=== PATIENT | female | born 1985 | race Two or more races ===

== ENCOUNTER 2019-03-28 11:45 | Inpatient (IN) | payer BC ==
[2019-03-28 13:26] VITALS: BMI 27.1
[2019-03-28] MEDS ORDERED: CITRIC ACID/SODIUM CITRATE 30 ML UNIT-DOSE CUP PO ONE ×2 (14:30→14:47)
[2019-03-28] MEDS ORDERED: ELECTROLYTE-148 SOLN 500 ML IV SCH (14:30)
[2019-03-28] MEDS ORDERED: ELECTROLYTE-148 SOLN 500 ML IV ONE (14:30)
[2019-03-28] MEDS ORDERED: ELECTROLYTE-148 SOLN 1,000 ML IV SCH (15:00)
[2019-03-28] MEDS ORDERED: METHYLERGONOVINE MALEATE 0.2 MG/1 ML AMP IM PRN (16:55)
[2019-03-28] MEDS ORDERED: IBUPROFEN 600 MG TABLET (FP) PO PRN (16:55)
[2019-03-28] MEDS ORDERED: IBUPROFEN 800 MG/8 ML IJ IVPB PRN (16:55)
[2019-03-28] MEDS ORDERED: oxyCODONE HCL 5 MG TABLET PO PRN (16:55)
[2019-03-28] MEDS ORDERED: ACETAMINOPHEN 325 MG TABLET (FP) PO PRN (16:55)
[2019-03-28] MEDS ORDERED: D5W-LR W/ 20 UNITS OXYTOCIN 20 UNIT/1,000 ML INFUS.BAG IV SCH (17:00)
--- NOTE | 2019-03-28 17:02 | OP ---
Operative Note - Note: Operative Date: 03/28/19 Pre-Operative Diagnosis: repeat lt c s Operation: repeat lt c s Findings: no adhesions Post-Operative Diagnosis: Same as Pre-op Surgeon: Jose Jensen Chicken Boner: Abner Kemp Anesthesiologist/CAKE WRAPPER: Nixon Vizcaino Anesthesia: Spinal Estimated Blood Loss (mls): 500 Operative Report Dictated: Yes
[2019-03-28] MEDS ORDERED: OXYTOCIN 20 UNITS in 0.9% NS 20 UNIT/1,000 ML INFUS.BAG IV ONE (17:50)
[2019-03-29] MEDS: oxyCODONE HCL 5 MG TABLET PO PRN ×3 (08:25→21:03)
[2019-03-29] MEDS: SIMETHICONE 80 MG TAB.CHEW (FP) PO PRN ×3 (08:25→21:02)
[2019-03-29] MEDS: ACETAMINOPHEN 325 MG TABLET (FP) PO PRN ×2 (08:26→13:31)
[2019-03-29] MEDS: ENOXAPARIN NA (PORCINE) 40 MG/0.4 ML DISP.SYRIN SQ SCH (10:10)
[2019-03-29 10:19] LABS: BASO % 0.3 % (0-2.0); EOS % 0.8 % (0-4.5); HEMATOCRIT 33.2 % (32.4-45.2); HEMOGLOBIN 11.1 GM/dL (10.7-15.3); LYMPH % 12.4 % (8-40); MCH 30.6 pg (25.7-33.7); MCHC 33.5 g/dl (32.0-36.0); MEAN CELL VOLUME 91.3 fl (80-96); MEAN PLT VOLUME 8.3 fl (7.5-11.1); MONO % 5.7 % (3.8-10.2); NEUT % 80.8 % (42.8-82.8); PLATELET COUNT 219 K/MM3 (134-434); RBC 3.64 M/mm3 (3.60-5.2); RDW 14.7 % (11.6-15.6); WHITE BLOOD COUNT 13.8 K/mm3 (4.0-10.0)
--- NOTE | 2019-03-29 14:13 | PN ---
Progress Note, Physician Chief Complaint: s/p c section post op day one History of Present Illness: under spinal anesthesia with duramorph for post op pain control - Current Medication List Current Medications: Active Medications Acetaminophen (Tylenol -) 650 mg PO Q4H PRN PRN Reason: PAIN LEVEL 1-5 Last Admin: 03/29/19 13:31 Dose: 650 mg Acetaminophen (Tylenol -) 650 mg PO Q4H PRN PRN Reason: FEVER Bisacodyl (Dulcolax Suppository -) 10 mg RC PRN PRN PRN Reason: CONSTIPATION Enoxaparin Sodium (Lovenox -) 40 mg SQ DAILY LARRY Last Admin: 03/29/19 10:10 Dose: 40 mg Parenteral Electrolytes (Plasma-Lyte 148 -) 1,000 mls @ 125 mls/hr IV [facility] Last Admin: 03/28/19 13:30 Dose: 125 mls/hr Dextrose/Lactated Ringer's (Pitocin 20 Units In D5-Lr -) 20 unit in 1,000 mls @ 125 mls/hr IV [facility] Last Admin: 03/28/19 17:30 Dose: 125 mls/hr Ibuprofen (Motrin -) 600 mg PO Q4H PRN PRN Reason: PAIN LEVEL 1-5 Ibuprofen (Motrin -) 600 mg PO Q4H PRN PRN Reason: PAIN LEVEL 1 - 3 Ibuprofen (Caldolor Injection -) 800 mg IVPB Q8H PRN PRN Reason: PAIN LEVEL 6-10 Last Admin: 03/29/19 01:18 Dose: 800 mg Methylergonovine Maleate (Methergine Injection -) 0.2 mg IM Q4H PRN PRN Reason: Excessive Bleeding (L&D) Oxycodone HCl (Roxicodone -) 5 mg PO Q4H PRN PRN Reason: PAIN LEVEL 4 - 6 Last Admin: 03/29/19 13:30 Dose: 5 mg Oxycodone HCl (Roxicodone -) 10 mg PO Q4H PRN PRN Reason: PAIN LEVEL 7 - 10 Senna/Docusate Sodium (Pericolace -) 2 tablet PO HS PRN PRN Reason: CONSTIPATION Simethicone (Mylicon -) 80 mg PO Q4H PRN PRN Reason: GAS Last Admin: 03/29/19 13:30 Dose: 80 mg - Objective Vital Signs: Vital Signs Temperature 98.2 F 03/29/19 10:00 Pulse Rate 68 03/29/19 10:00 Respiratory Rate 20 03/29/19 11:00 Blood Pressure 113/64 03/29/19 10:00 O2 Sat by Pulse Oximetry (%) 100 03/28/19 17:35 Constitutional: Yes: Well Nourished Cardiovascular: Yes: WNL Respiratory: Yes: WNL Gastrointestinal: Yes: WNL Labs: CBC, BMP 03/29/19 07:40 Assessment/Plan No adverse effect of anesthetic, pain controlled with analgesics, no further intervention from the dept of anesthesiology at this time.
--- NOTE | 2019-03-29 14:55 | PN ---
Post Progress Note Post Day: 1 Type of Delivery: Repeat C/S Vital Signs: Vital Signs Temperature 98.2 F 03/29/19 10:00 Pulse Rate 68 03/29/19 10:00 Respiratory Rate 20 03/29/19 11:00 Blood Pressure 113/64 03/29/19 10:00 O2 Sat by Pulse Oximetry (%) 100 03/28/19 17:35 Breast Exam: Yes: Soft Uterus: Yes: Fundus Firm, Fundus below umbilicus Incision: Yes: Dressing dry and intact, Sutures intact Abdomen/GI: Yes: Abdomen soft, Passing flatus, Tolerating PO Lochia: Yes: Serosa Lochia, amount: Small Extremities: Yes: Calves non-tender Perineum: Yes: Intact Activity: Ambulating - Labs Labs: CBC WBC 13.8 K/mm3 (4.0-10.0) H 03/29/19 07:40 RBC 3.64 M/mm3 (3.60-5.2) 03/29/19 07:40 Hgb 11.1 GM/dL (10.7-15.3) 03/29/19 07:40 Hct 33.2 % (32.4-45.2) 03/29/19 07:40 MCV 91.3 fl (80-96) 03/29/19 07:40 MCH 30.6 pg (25.7-33.7) 03/29/19 07:40 MCHC 33.5 g/dl (32.0-36.0) 03/29/19 07:40 RDW 14.7 % (11.6-15.6) 03/29/19 07:40 Plt Count 219 K/MM3 (134-434) 03/29/19 07:40 MPV 8.3 fl (7.5-11.1) 03/29/19 07:40 Absolute Neuts (auto) 11.2 K/mm3 (1.5-8.0) H 03/29/19 07:40 Neutrophils % 80.8 % (42.8-82.8) 03/29/19 07:40 Lymphocytes % 12.4 % (8-40) D 03/29/19 07:40 Monocytes % 5.7 % (3.8-10.2) 03/29/19 07:40 Eosinophils % 0.8 % (0-4.5) 03/29/19 07:40 Basophils % 0.3 % (0-2.0) 03/29/19 07:40 Nucleated RBC % 0 % (0-0) 03/29/19 07:40 Assessment/Plan doing well, ambulating well
--- NOTE | 2019-03-29 14:58 | HP ---
Past Medical History - Admission Chief Complaint: for repeat c s History of Present Illness: none History Source: Patient Limitations to Obtaining History: No Limitations - Past Medical History CHAMBER MAGISTRATE: No: Alzheimer's, CVA, Dementia, Migraine, Multiple Sclerosis, Peripheral Neuropathy, Parkinson's, Seizure, Syncope, TIA, Vertigo, Other Cardiovascular: No: AFIB, Aneurysm, Aortic Insufficiency, Aortic Stenosis, CAD, CHF, Deep Vein Thrombosis, HTN, Hyperlipdemia, RI, Mitral Insufficiency, Mitral Stenosis, Murmur, Pulmonary Hypertension, Other Pulmonary: No: Asthma, Bronchitis, Cancer, COPD, O2 Dependent, Pneumonia, Previously Intubated, Pulmonary Embolus, Pulmonary Fibrosis, Sleep Apnea, Other Gastrointestinal: No: Ascites, Cancer, Constipation, Crohn's Disease, Diverticulitis, Diverticulosis, Esophageal Varices, Gastritis, GERD, GI Bleed, Hemorrhoids, Hiatal Hernia, Inflamatory Bowel Disease, Irritable Bowel Disease, Pancreatitis, Peptic Ulcer Disease, Ulcerative Colitis, Other Hepatobiliary: No: Cirrhosis, Cholelithiasis, Cholecystitis, Choledocholithiasis , Hepatitis A, Hepatitis B, Hepatitis C, Other Renal/: No: Renal Failure, Renal Inusuff, BPH, Cancer, Hematuria, Hemodialysis , Neurogenic Bladder, Renal Calculi, UTI, Other Reproductive: No: Ectopic , Endometriosis, Fibroids, PID, Polycystic Ovary Syndrome, Postmenopausal, Other ...: 3 ...Para: 1 ...Term: 1 ...: 0 ...Spon : 1 ...Induced : 0 ...Multiple Gestation: 0 ...LMP: 06/28/18 ... Weeks Gestation by Dates: 39 ...EDC by Dates: 04/04/19 ...EDC by Sono: 04/04/19 Heme/Onc: No: Anemia, B12 Deficiency, Bleeding Disorder, Cancer, Current Chemotherapy, Current Radiation Therapy, Hemochromatosis, Hypercoaguable State, Myeloproliferative Synd, Sickle Cell Disease, Sickle Cell Trait, Thrombocytopenia, Other Infectious Disease: No: AIDS, C-Diff, Herpes Zoster, HIV, MRSA, STD's, Tuberculosis, VREF, Other Psych: No: Addictions, Anxiety, Bipolar, Depression, Panic, Psychosis, Schizophrenia, Other Musculoskeletal: No: Bursitis, Chronic low back pain, Hemiparesis, Hemiplegia, Osteoarthritis, Paraplegia, Other Rheumatology: No: Fibromyalgia, Gout, Lupus, Rheumatoid Arthritis, Sarcoidosis, Vasculitis, Other ENT: No: Allergic Rhinitis, Sinusitis, Other Endocrine: No: Bharat's Disease, [place]'s Disease, Diabetes Insipidus, Diabetes Mellitus, Hyperparathyroidism, Hyperthyroidism, Hypothyroidism, Osteopenia, SIADH, Other Dermatology: No: Basal Cell, Cellulitis, Eczema, Melanoma, Psoriasis, Squamous Cell, Other - Past Surgical History Past Surgical History: No: None, AAA Repair, AICD, Amputation, Appendectomy, Arthrosocopy, AV Fistula/Graft, Bariatric Surgery, Breast Biopsy, Bypass, CABG, Carotid Endarterectomy, Cataract Removal, Cholecystectomy, Colectomy, Colonoscopy, Colostomy, Craniotomy, , Cystectomy, Hernia Repair, Hysterectomy, Ileal Conduit, Ileosotomy, Joint Replacement, Kidney Transplant, Laminectomy, Liver Transplant, Mastectomy, Nephrectomy, Oopherectomy, Orchiectomy, Permanent Pacemaker, Prostatectomy, Splenectomy, Stent, Thoracotomy , TURP, Tonsillectomy, Tubal Ligation, Upper Endoscopy, Valve Replacement, Vasectomy, Vein Stripping/Ligation Hx Myomectomy: No Hx Transabdominal Cerclage: No - Advance Directives Advance Directives: Yes: Living Will - Smoking History Smoking history: Never smoked Have you smoked in the past 12 months: No - Alcohol/Substance Use Hx Alcohol Use: No History of Substance Use: reports: None - Social History Usual Living Arrangement: Yes: With Spouse ADL: Independent History of Recent Travel: No Home Medications - Allergies Allergies/Adverse Reactions: Allergies Allergy/AdvReac Type Severity Reaction Status Date / Time No Known Allergies Allergy Verified 03/28/19 13:01 - Home Medications Home Medications: Ambulatory Orders Prenat 115/Iron Fum/Folic/Dss [ 19 Tablet] 1 tab PO DAILY 03/28/19 Family Disease History - Family Disease History Family History: Denies Review of Systems - Review of Systems Constitutional: reports: No Symptoms Eyes: reports: No Symptoms HENT: reports: No Symptoms Neck: reports: No Symptoms Cardiovascular: reports: No Symptoms Respiratory: reports: No Symptoms Gastrointestinal: reports: No Symptoms Genitourinary: reports: No Symptoms Breasts: reports: No Symptoms Reported Musculoskeletal: reports: No Symptoms Integumentary: reports: No Symptoms Neurological: reports: No Symptoms Endocrine: reports: No Symptoms Hematology/Lymphatic: reports: No Symptoms Psychiatric: reports: No Symptoms Physical Exam - Maternity Vital Signs: Vital Signs Temperature 98.2 F 03/29/19 10:00 Pulse Rate 68 03/29/19 10:00 Respiratory Rate 20 03/29/19 11:00 Blood Pressure 113/64 03/29/19 10:00 O2 Sat by Pulse Oximetry (%) 100 03/28/19 17:35 Constitutional: Yes: Well Nourished, No Distress, Calm Eyes: Yes: WNL, Conjunctiva Clear, EOM Intact HENT: Yes: WNL, Atraumatic, Normocephalic Neck: Yes: WNL, Supple, Trachea Midline Cardiovascular: Yes: WNL, Regular Rate and Rhythm Lungs: Clear to auscultation Breast(s): Yes: WNL - Abdominal Exam/OB Fundal Height: 38 Number of Fetuses: Single Presentation: Vertex Contractions: Yes Regularity: Irregular Intensity: Unaware Monitor Mode: External Heart Rate (range): 135 Heart Rate Location: [facility] Category: I Accelerations: Uniform Decelerations: None - Vaginal Exam/OB Vaginal Bleediing: No Speculum Exam: No Presentation: Vertex/Position Station: -2 - Physical Exam Musculoskeletal: Yes: WNL Extremities: Yes: WNL Edema: Yes Edema: LUE: 1+, RUE: 1+, LLE: 1+, RLE: 1+ Integumentary: Yes: WNL Deep Tendon Reflex Grade: Normal +2 ...Motor Strength: WNL Psychiatric: Yes: WNL, Alert, Oriented - Labs Lab Results: CBC, BMP 03/29/19 07:40 Hemorrhage Risk Assessment - Risk Factors Risk Score: 0 Risk Level: Low Risk Assessment/Plan for repeat lt c s
--- NOTE | 2019-03-29 16:37 | OP ---
DATE OF OPERATION: 03/28/2019 PREOPERATIVE DIAGNOSIS: Repeat low transverse section. POSTOPERATIVE DIAGNOSIS: Repeat low transverse section. No scar tissue. PROCEDURE: Repeat low transverse section. SURGEON: Jose Garcia M.D. TEACHER EDUCATION DIRECTOR: Santa Guzman ANESTHESIA: Spinal ANESTHESIOLOGIST: Nixon Vizcaino M.D. BLOOD LOSS: About 500 mL INDICATION: This is a 33-year-old female patient with previous history of low transverse section, 39 weeks and 2 days . She is taken to the OR for repeat low transverse section. DESCRIPTION OF PROCEDURE: Patient was placed on operating table in supine position after spinal anesthesia was obtained, the patient's abdomen and pelvis were prepped and draped in the usual sterile manner. Pfannenstiel incision was made. The incision was made through skin, subcutaneous tissue, until the fascia was nicked in the midline. The fascia was extended bilaterally. Intraperitoneal cavity was entered, no bladder flap was created. Low transverse section of uterus was entered, baby delivered from LOT position. Baby was handed over to the tire shop mechanic after umbilical cord was doubly clamped and cut. Cord blood gas was obtained. Placenta was removed. Uterus was closed in single layer, first layer interlocking Vicryl suture, good hemostasis, and no second layer was applied, but needed some interrupted suture was applied for the second layer of the uterus, otherwise good hemostasis. Both ovaries, fallopian tubes, uterus were within normal limits, no complications. Tolerated procedure well. Draining clear urine. Blood loss was about 500 mL. Peritoneum was closed. Fascia was closed. Skin was closed. Transferred to recovery room in stable condition. JOSE GARCIA MD [id number]
[2019-03-29] MEDS: IBUPROFEN 600 MG TABLET (FP) PO PRN ×2 (16:47→21:03)
[2019-03-29] MEDS ORDERED: BISACODYL 10 MG SUPP.RECT RC PRN (16:55)
[2019-03-29] MEDS: SENNOSIDES/DOCUSATE COMBO (SENNA PLUS) TABLET (UD) PO PRN (21:05)
[2019-03-30] MEDS: SIMETHICONE 80 MG TAB.CHEW (FP) PO PRN ×5 (01:09→21:20)
[2019-03-30] MEDS: ACETAMINOPHEN 325 MG TABLET (FP) PO PRN ×5 (01:09→21:21)
[2019-03-30] MEDS: IBUPROFEN 600 MG TABLET (FP) PO PRN ×5 (01:10→21:21)
[2019-03-30] MEDS: ENOXAPARIN NA (PORCINE) 40 MG/0.4 ML DISP.SYRIN SQ SCH (10:42)
--- NOTE | 2019-03-30 20:13 | PN ---
Post Progress Note Post Day: 2 Type of Delivery: Repeat C/S Vital Signs: Vital Signs Temperature 97.7 F 03/30/19 09:07 Pulse Rate 77 03/30/19 09:07 Respiratory Rate 20 03/30/19 09:07 Blood Pressure 107/61 03/30/19 09:07 O2 Sat by Pulse Oximetry (%) 100 03/28/19 17:35 Breast Exam: Yes: Soft Uterus: Yes: Fundus Firm, Fundus below umbilicus Incision: Yes: Dressing dry and intact, Sutures intact Abdomen/GI: Yes: Abdomen soft, Passing flatus, Tolerating PO Lochia: Yes: Serosa Lochia, amount: Small Extremities: Yes: Calves non-tender Activity: Ambulating - Labs Labs: CBC WBC 13.8 K/mm3 (4.0-10.0) H 03/29/19 07:40 RBC 3.64 M/mm3 (3.60-5.2) 03/29/19 07:40 Hgb 11.1 GM/dL (10.7-15.3) 03/29/19 07:40 Hct 33.2 % (32.4-45.2) 03/29/19 07:40 MCV 91.3 fl (80-96) 03/29/19 07:40 MCH 30.6 pg (25.7-33.7) 03/29/19 07:40 MCHC 33.5 g/dl (32.0-36.0) 03/29/19 07:40 RDW 14.7 % (11.6-15.6) 03/29/19 07:40 Plt Count 219 K/MM3 (134-434) 03/29/19 07:40 MPV 8.3 fl (7.5-11.1) 03/29/19 07:40 Absolute Neuts (auto) 11.2 K/mm3 (1.5-8.0) H 03/29/19 07:40 Neutrophils % 80.8 % (42.8-82.8) 03/29/19 07:40 Lymphocytes % 12.4 % (8-40) D 03/29/19 07:40 Monocytes % 5.7 % (3.8-10.2) 03/29/19 07:40 Eosinophils % 0.8 % (0-4.5) 03/29/19 07:40 Basophils % 0.3 % (0-2.0) 03/29/19 07:40 Nucleated RBC % 0 % (0-0) 03/29/19 07:40 Assessment/Plan dc pt home tomorrow
--- NOTE | 2019-03-30 20:14 | DS ---
Physical Exam-PRODUCTION AIDE Vital Signs: Vital Signs Temperature 97.7 F 03/30/19 09:07 Pulse Rate 77 03/30/19 09:07 Respiratory Rate 20 03/30/19 09:07 Blood Pressure 107/61 03/30/19 09:07 O2 Sat by Pulse Oximetry (%) 100 03/28/19 17:35 Constitutional: Yes: Well Nourished, No Distress, Calm Eyes: Yes: WNL, Conjunctiva Clear, EOM Intact HENT: Yes: WNL, Atraumatic, Normocephalic Neck: Yes: WNL, Supple, Trachea Midline Cardiovascular: Yes: WNL, Regular Rate and Rhythm Respiratory: Yes: WNL, Regular, CTA Bilaterally Gastrointestinal: Yes: WNL, Normal Bowel Sounds, Soft ...Rectal Exam: Yes: WNL Renal/: Yes: WNL Pelvis: Yes: WNL External Genitalia: Yes: Normal Internal Exam Deferred: No Vaginal Exam: Yes: Normal Cervix: Yes: Normal Uterus: Yes: Normal Adnexa: Normal: Bilateral ....Post : Yes: Uterus firm, Uterus non-tender Breast(s): Yes: WNL Musculoskeletal: Yes: WNL Extremities: Yes: WNL Edema: Yes Edema: LUE: 1+, RUE: 1+, LLE: 1+, RLE: 1+ Integumentary: Yes: WNL Wound/Incision: Yes: Clean/Dry, Well Approximated Neurological: Yes: WNL, Alert, Oriented ...Motor Strength: WNL Psychiatric: Yes: WNL, Alert, Oriented Labs: CBC, BMP 03/29/19 07:40 Delivery - Delivery Type of Anesthesia: Spinal Episiotomy/Laceration: None EBL (cc): 500 Delivery, Single - Stages of Labor Date of Delivery: 03/28/19 Time of Delivery: 15:40 Time Placenta Delivered: 15:41 - Condition of Infant Director Design/Vp Software Support Present: No Infant Gender: Female Weight: 3.118 kg Position: Right, OA Total Hours ROM (Hrs/Mins): 2min - 1 Minute Total Score: 9 5 Minutes Total Score: 9 - Feeding Plan Initial Plan: Elected not to breastfeed exclusively throughout hospitalization Discharge Summary Reason For Visit: Condition: Stable - Instructions Diet, Activity, Other Instructions: regular Disposition: HOME - Home Medications Comprehensive Discharge Medication List: Ambulatory Orders Prenat 115/Iron Fum/Folic/Dss [ 19 Tablet] 1 tab PO DAILY 03/28/19
[2019-03-30] MEDS: SENNOSIDES/DOCUSATE COMBO (SENNA PLUS) TABLET (UD) PO PRN (21:23)
[2019-03-31 08:09] LABS: BASO % 0.5 % (0-2.0); EOS % 1.6 % (0-4.5); HEMATOCRIT 34.3 % (32.4-45.2); HEMOGLOBIN 11.4 GM/dL (10.7-15.3); LYMPH % 13.9 % (8-40); MCH 30.6 pg (25.7-33.7); MCHC 33.3 g/dl (32.0-36.0); MEAN CELL VOLUME 91.8 fl (80-96); MEAN PLT VOLUME 7.8 fl (7.5-11.1); MONO % 6.7 % (3.8-10.2); NEUT % 77.3 % (42.8-82.8); RBC 3.73 M/mm3 (3.60-5.2); RDW 15.1 % (11.6-15.6); WHITE BLOOD COUNT 9.3 K/mm3 (4.0-10.0)
[2019-03-31 08:36] LABS: PLATELET COUNT 285 K/MM3 (134-434)
[2019-03-31] MEDS: IBUPROFEN 600 MG TABLET (FP) PO PRN ×2 (08:51→12:28)
[2019-03-31] MEDS: ACETAMINOPHEN 325 MG TABLET (FP) PO PRN ×2 (08:52→12:29)
[2019-03-31] MEDS: SIMETHICONE 80 MG TAB.CHEW (FP) PO PRN ×2 (08:53→12:28)
[2019-03-31] MEDS: ENOXAPARIN NA (PORCINE) 40 MG/0.4 ML DISP.SYRIN SQ SCH (10:51)
[2019-03-31 14:21] VITALS: BP 111/75; PULSE 74; TEMP 98
--- NOTE | 2019-04-01 16:25 | PATH ---
Surgical Pathology Report Patient Name: IDALIA KIDD Med. Rec. #: [id number] /Age/Gender: 1985 (Age: 33) / F Account: [id number] Location: [facility] OBS/ROLL SCALE MAN Taken: 03/28/2019 Received: 03/29/2019 Reported: 04/01/2019 Physicians: Jose Jensen MD Specimen(s) Received PLACENTA Clinical History at 39 weeks for repeat Final Diagnosis PLACENTA, SECTION: 419 G THIRD TRIMESTER PLACENTA WITH TRIVASCULAR UMBILICAL CORD AND PLACENTAL MEMBRANES WITH MECONIUM LADEN MACROPHAGES. Electronically Signed Sherry Piña M.D. Gross Description The specimen is received fresh labeled placenta and is a 419 gram, 15.5 x 13.5 x 3.4 cm. placenta with attached membranes and umbilical cord. The attached membranes are talbot, thick, cloudy and insert marginally. The umbilical cord measures 21 cm. in length and averages 0.9 cm. in diameter. The cord inserts eccentrically, 3.5 cm. to the nearest margin. No true knots or strictures are identified. Cut surface of the umbilical cord reveals 3 vessels. The surface is suresh green, meconium stained with minimal fibrin deposition and appropriate caliber vessels. The maternal surface is red-brown with focal defects. Sectioning reveals red-brown, spongy parenchyma. No lesions are identified. Local Sales Associate sections are submitted in three cassettes as follows: 1- membrane rolls and umbilical cord; 2-3- full thickness sections of placenta. /03/31/2019 [facility]03/31/2019
== END 2019-03-31 14:05 | disposition home or self-care (01) | DRG 788 ==
LOC: JLDR 11:45 → J3W 18:15
PROVIDERS: ADMIT Obstetrics & Gynecology; ATTEND Obstetrics & Gynecology
PROC: 10D00Z1 Extraction of Products of Conception, Low, Open Approach (ICD-10-PCS; principal; 2019-03-28)
DX: O34.211 Maternal care for low transverse scar from previous cesarean delivery (principal); Z3A.39 39 weeks gestation of pregnancy; Z37.0 Single live birth
CPT/HCPCS: 36415; 85025; 88307-TC